=== PATIENT | female | born 1945 | race Caucasian/White ===

== ENCOUNTER 2020-05-08 09:56 | Outpatient (CLI) | payer OTHER, SELFPAY ==
--- NOTE | ~2020-05-08 | MM_ITS ---
EXAMINATION: MM screening [facility] BI w toi HISTORY: Screening mammogram, family history of breast cancer in her sister. TECHNIQUE: Craniocaudal and mediolateral oblique 3-D tomosynthesis images were obtained and synthetic 2-D images were generated. CAD analysis was submitted and interpreted. COMPARISON: 04/12/2019, 04/10/2018, 03/25/2017 BREAST PARENCHYMAL COMPOSITION: There are scattered areas of fibroglandular density. FINDINGS: An intramammary lymph node is again noted in the upper outer quadrant of the right breast. There is no evidence of suspicious mass, calcification, or architectural distortion to suggest malign clinton in either breast. There has been no suspicious interval change. IMPRESSION: 1. No mammographic evidence of malignancy. 2. Recommend routine screening mammography in one year. BI-RADS Category 2: Benign finding(s). Reviewed, dictated and finalized at location A. WADDY
--- NOTE | ~2020-05-08 | DEXA_ITS ---
Bone Density Report Name: Kavita Velasquez Age: 74 Sex: Female Ethnicity: White Date of : 1945 Indication: osteopenia; height loss; prior fracture; Referring Provider: Miguel Hobbs Study: Bone densitometry was performed. Exam Date: May 08, 2020 Accession number: [id number] Bone Density: Region BMD T-score Z-score Classification AP Spine (L3, L4) 0.885 -2.0 0.4 Osteopenia Femoral Neck (Left) 0.661 -1.7 0.3 Osteopenia Total Hip (Left) 0.861 -0.7 1.0 Normal Total Hip Bilateral Avg 0.868 -0.7 1.1 Normal Femoral Neck (Right) 0.733 -1.0 0.9 Normal Total Hip (Right) 0.873 -0.6 1.1 Normal World Health Organization criteria for BMD impression classify patients as: Normal (T-score at or above -1.0), Osteopenia (T-score between -1.0 and -2.5), or Osteoporosis (T-score at or below -2.5). 10-year Fracture Risk(1): Major Osteoporotic Fracture 17% Hip Fracture 2.8% Reported Risk Factors: [place] (), Neck BMD=0.661, BMI=30.2, previous fracture (1) FRAX(R) Version 3.08. Fracture probability calculated for an untreated patient. Fracture probability may be lower if the patient has received treatment. Previous Exams: Region Exam Age BMD T-score BMD Change BMD Change Date g/cm2 vs Baseline vs Previous AP Spine(L3, L4) 05/08/2020 74 0.885 -2.0 -0.060(-6.4%)# 0.027(3.2%)* 04/10/2018 72 0.857 -2.2 -0.087(-9.3%)# -0.008(-0.9%) 03/22/2016 70 0.865 -2.1 -0.080(-8.4%)# 0.007(0.8%) 03/13/2014 68 0.858 -2.2 -0.087(-9.2%)# -0.096(-10.0%) 02/23/2010 64 0.954 -1.3 0.009(0.9%) 0.016(1.7%) 02/19/2008 62 0.937 -1.5 -0.007(-0.8%) 0.016(1.8%) 12/14/2004 59 0.921 -1.6 -0.024(-2.5%)* -0.024(-2.5%)* 09/29/2002 57 0.945 -1.4 Total Hip(Left) 05/08/2020 74 0.861 -0.7 -0.041(-4.5%)# -0.044(-4.9%)* 04/10/2018 72 0.905 -0.3 0.004(0.4%)# 0.003(0.4%) 03/22/2016 70 0.902 -0.3 0.000(0.0%)# -0.008(-0.9%) 03/13/2014 68 0.910 -0.3 0.008(0.9%)# 0.033(3.8%)# 02/23/2010 64 0.876 -0.5 -0.025(-2.8%) 0.007(0.8%) 02/19/2008 62 0.870 -0.6 -0.032(-3.5%)* -0.009(-1.0%) 12/14/2004 59 0.879 -0.5 -0.023(-2.5%) -0.023(-2.5%) 09/29/2002 57 0.901 -0.3 Total Hip(Right) 05/08/2020 74 0.873 -0.6 -0.061(-6.6%)# -0.024(-2.7%) 04/10/2018 72 0.897 -0.4 -0.037(-4.0%)# -0.009(-1.0%) 03/22/2016 70 0.906 -0.3 -0.028(-3.0%)# -0.007(-0.8%) 03/13/2014 68 0.913 -0.2 -0.021(-2.2%)# 0.010(1.2%)# 02/23/2010 64 0.903 -0.3 -0.031(-3.4%)* -0.021(-2.3%) 02/19/2008 62 0.924 -0.1 -0.010(-1.1%) 0.003(0.3%) 12/14/2004 59 0.9
== END 2020-05-08 09:57 | disposition home or self-care (01) ==
LOC: ANHIMG 09:59
PROVIDERS: PCP Physician Assistant; Visit Provider Physician Assistant
DX: Z12.31 Encounter for screening mammogram for malignant neoplasm of breast (principal); Z13.820 Encounter for screening for osteoporosis; M85.852 Other specified disorders of bone density and structure, left thigh
CPT/HCPCS: 77063; 77067; 77080

== ENCOUNTER → 2020-06-14 09:33 | Outpatient (CLI) | payer OTHER, SELFPAY ==
--- NOTE | ~2020-06-14 | MR_ITS ---
EXAMINATION: MR lumbar spine wo con EXAM DATE: 06/14/2020 10:51 INDICATION: M25.551 - Pain in right hip right hip pain x2mos, pt denies lbp, no trauma, no ca. TECHNIQUE: Multi-sequential, multiplanar MR images of the lumbar spine were obtained without contrast . Sagittal T1, T2, T2 fat saturation images. Axial T2 weighted images. There is no prior study for comparison. FINDINGS: There is 4 mm retrolisthesis L5 on S1 with moderate disc disease. Mild loss of the L3-4 dis c height. Mild to moderate loss of the T11-L1 disc heights. The vertebral body and disc heights are o therwise well maintained. The vertebral bodies are otherwise aligned. The conus medullaris terminates at the L1/2 level and has normal signal intensity and morphology. There are no suspicious marrow sig nal abnormalities. Paraspinal soft tissue is unremarkable. Mild to moderate lumbar dextroscoliosis. Level by level evaluation: T12-L1: There is a mild diffuse disc bulge. Facet arthropathy: Mild to moderate left. Neural foraminal stenosis: No stenosis. Central canal stenosis: No stenosis. L1-L2: Disc does not extend beyond the endplate margin. Facet arthropathy: Mild. Neural foraminal stenosis: No stenosis. Central canal stenosis: No stenosis. L2-L3: Disc does not extend beyond the endplate margin. Facet arthropathy: Mild. Neural foraminal stenosis: No stenosis. Central canal stenosis: No stenosis. L3-L4: There is a mild to moderate diffuse disc bulge. Facet arthropathy: Mild to moderate. Neural foraminal stenosis: Mild to moderate bilateral. Central canal stenosis: Mild. L4-L5: There is a mild to moderate diffuse disc bulge. Facet arthropathy: Moderate to severe left, moderate right. Neural foraminal stenosis: Mild to moderate bilateral. Central canal stenosis: Mild to moderate. L5-S1: There is a moderate diffuse disc bulge. Facet arthropathy: Mild to moderate. Neural foraminal stenosis: Moderate right, mild to moderate left. Central canal stenosis: Mild. IMPRESSION: 1. L5-S1 moderate disc disease, left neural foraminal stenosis and grade 1 retrolisthesis. 2. L4-5 moderate to severe facet arthropathy. 3. Less spondylosis other levels. Reviewed, dictated and finalized at location A. TREATMENT OFFSIDER IMPRESSION: 1. L5-S1 moderate disc disease, left neural foraminal stenosis and grade 1 ret rolisthesis. 2. L4-5 moderate to severe facet arthropathy. 3. Less spondylosis other levels.
== END ==
PROVIDERS: PCP Physician Assistant; Visit Provider Nurse Practitioner Family
DX: M25.551 Pain in right hip (principal); M51.87 Other intervertebral disc disorders, lumbosacral region; M43.17 Spondylolisthesis, lumbosacral region; M47.817 Spondylosis without myelopathy or radiculopathy, lumbosacral region
CPT/HCPCS: 72148

== ENCOUNTER 2021-04-30 01:03 | Day surgery (SDC) | payer OTHER, SELFPAY ==
[2021-04-20 13:28] VITALS: BMI 30.2
[2021-04-30 10:15] VITALS: BP 142/86; PULSE 77; RESP 20; TEMP 36.9; O2SAT 95; BMI 29.5
[2021-04-30] MEDS: LACTATED RINGERS 1,000 ML 150 ML IV CONT (10:27)
--- NOTE | 2021-04-30 10:29 | WPDGICN ---
Assessment and Plan Assessment and plan (1) History of colon polyps: Code(s): Z86.010 - Personal history of colonic polyps Status: Acute Assessment and Plan: Patient has a history of colon polyps. Most recent polypectomy in 2014. Plan is for surveillance colonoscopy now and further recommendations will be given after endoscopy. GI Consult Note Consult date/time: 04/30/21 10:29 HPI: Kavita Velasquez is a 75 year old female Presents for screening colonoscopy. Patient's has a prior history of colon polyps removed by colonoscopy 2014. Her current weight appetite bowel movements are normal. She denies abdominal pain. She has had no bleeding. She did have an interval with difficulties with bowel habits. Constipation improved dramatically on taking [id number] medicine MiraLax. She currently has no difficulties. Review of Systems Review of Systems: All systems reviewed & are unremarkable except as noted in HPI and below PMFSH Past Medical History Medical History Constipation Hearing loss Hyperlipidemia Hypertension Hypothyroidism determined by thyroid function test Low back pain Lumbar radiculopathy, right Lumbar spine pain Rotator cuff arthropathy of right shoulder Trochanteric bursitis, right hip Surgical History Surgical History History of cholecystectomy Family History Family History Sibling Family history of cardiovascular disease Family history of pancreatic cancer Family history of malignant neoplasm of breast in first degree relative Family history of malignant neoplasm of thyroid Family history of malignant neoplasm of kidney Mother Family history of kidney disease Other Family history of arthritis Family history of malignant neoplasm Hypertension Social History Social History Smoking status: Never smoker Second hand tobacco smoke exposure: No Alcohol intake: never Substance use: never Substance use type: does not use Living arrangements: alone Gender identity (if verbalized by the patient): Female Spiritual care concerns: No Meds Home Medications and Allergies Home Medications Medication Instructions Recorded Confirmed Type calcium carbonate 260 mg calcium 260 mg PO BID 05/01/19 04/20/21 History (650 mg) chewable tablet latanoprost 0.005 % eye drops 1 drop RIGHTEYE QPM 05/01/19 04/20/21 History multivitamin-ferrous 1 tablet PO DAILY 05/01/19 04/20/21 History fumarate-folic acid 18 mg-400 mcg tablet omega-3 fatty acids-fish oil 360 1 cap PO DAILY 05/01/19 04/20/21 History mg-1,200 mg capsule hydrochlorothiazide 12.5 mg capsule 12.5 mg PO DAILY #90 cap 03/31/21 04/20/21 Rx wheat dextrin (with aspartame) 3 3 ea PO DAILY 04/06/21 04/20/21 History gram/4.6 gram oral powder polyethylene glycol 3350 [Miralax] 17 g PO DAILY PRN 04/20/21 04/20/21 History atorvastatin 10 mg tablet 10 mg PO DAILY #90 tablet 04/24/21 04/30/21 Rx levothyroxine 25 mcg tablet 25 mcg PO DAILY #90 tablet 04/24/21 04/30/21 Rx lisinopril 10 mg tablet 10 mg PO DAILY #90 tablet 04/24/21 04/30/21 Rx Allergies Allergy/AdvReac Type Severity Reaction Status Date / Time No Known Allergies Allergy Verified 04/30/21 10:13 Vital Signs Vital Signs - 24 hr 04/30/21 10:15 Temperature 98.4 F Pulse Rate 77 Respiratory Rate 20 Blood Pressure 142/86 H Pulse Oximetry 95 Exam Narrative: Physical exam reveals patient to be alert. Vital signs stable. HEENT exam is unremarkable. Patient is anicteric. Lungs are clear to auscultation and to percussion. Heart is without murmur or extra sounds. Abdomen bowel sounds are present soft nontender with no organomegaly. Digital external rectal exam is normal.
--- NOTE | 2021-04-30 10:31 | WPDANESEPPF ---
Anes - Initial Pre Proc Eval Procedure: Operation Date: 04/30/21 11:30 Proposed Procedures p Colonoscopy - Raj Baer MD Date/Time: 04/30/21 10:31 Surgeon: Raj Baer MD Pre Op Diagnosis: constipation, hx of colon polyps, abdominal pain Patient Data Age: 75 Gender: F Height: 1.57 m Weight: 73.3 kg Last Vital Signs Temp 36.9 C 04/30/21 10:15 Pulse 77 04/30/21 10:15 Resp 20 04/30/21 10:15 BP 142/86 H 04/30/21 10:15 Pulse Ox 95 04/30/21 10:15 Allergies Allergy/AdvReac Type Severity Reaction Status Date / Time No Known Allergies Allergy Verified 04/30/21 10:13 Home Medications Medication Instructions Recorded Confirmed Type calcium carbonate 260 mg calcium 260 mg PO BID 05/01/19 04/20/21 History (650 mg) chewable tablet latanoprost 0.005 % eye drops 1 drop RIGHTEYE QPM 05/01/19 04/20/21 History multivitamin-ferrous 1 tablet PO DAILY 05/01/19 04/20/21 History fumarate-folic acid 18 mg-400 mcg tablet omega-3 fatty acids-fish oil 360 1 cap PO DAILY 05/01/19 04/20/21 History mg-1,200 mg capsule hydrochlorothiazide 12.5 mg capsule 12.5 mg PO DAILY #90 cap 03/31/21 04/20/21 Rx wheat dextrin (with aspartame) 3 3 ea PO DAILY 04/06/21 04/20/21 History gram/4.6 gram oral powder polyethylene glycol 3350 [Miralax] 17 g PO DAILY PRN 04/20/21 04/20/21 History atorvastatin 10 mg tablet 10 mg PO DAILY #90 tablet 04/24/21 04/30/21 Rx levothyroxine 25 mcg tablet 25 mcg PO DAILY #90 tablet 04/24/21 04/30/21 Rx lisinopril 10 mg tablet 10 mg PO DAILY #90 tablet 04/24/21 04/30/21 Rx Patient hx anesthesia problems: none Family hx anesthesia problems: none Results Review: All pre-operative results and documents have been reviewed as part of the pre-operative evaluation. [facility] Past Medical History Medical History Constipation Hearing loss Hyperlipidemia Hypertension Hypothyroidism determined by thyroid function test Low back pain Lumbar radiculopathy, right Lumbar spine pain Rotator cuff arthropathy of right shoulder Trochanteric bursitis, right hip Surgical History Surgical History History of cholecystectomy Family History Family History Sibling Family history of cardiovascular disease Family history of pancreatic cancer Family history of malignant neoplasm of breast in first degree relative Family history of malignant neoplasm of thyroid Family history of malignant neoplasm of kidney Mother Family history of kidney disease Other Family history of arthritis Family history of malignant neoplasm Hypertension Social History Social History Smoking status: Never smoker Second hand tobacco smoke exposure: No Alcohol intake: never Substance use: never Substance use type: does not use Living arrangements: alone Gender identity (if verbalized by the patient): Female Spiritual care concerns: No Anes - Eval Final PreProcedure Day of Procedure 04/30/21 10:31 Patient weight: overweight Heart: regular rate and rhythm Lungs: clear to auscultation Airway: Mallampati scale class III Neurological: alert and oriented Last oral intake: >/= 8 hours ASA classification: III Emergent: no Anesthetic plan: proceed Anesthesia type and monitoring: general GIVS and standard monitoring Results Review: All pre-operative results and documents have been reviewed as part of the pre-operative evaluation. Informed Consent: The patient's anesthetic plan and its attendant risks and benefits were discussed with the patient/family/POA. Questions were solicited and answers provided to the satisfaction of the patient/family/POA.
[2021-04-30] MEDS: SIMETHICONE ORAL SUSPENSION 20 MG/0.3 ML 30 ML BOTTLE 0.6 ML IRRIGATION (11:16)
[2021-04-30 11:25] VITALS: BP 108/71; PULSE 60; RESP 13; O2SAT 97
[2021-04-30 11:35] VITALS: BP 136/92; PULSE 74; RESP 22; O2SAT 97
[2021-04-30 11:45] VITALS: BP 144/87; PULSE 71; RESP 19; O2SAT 98
== END 2021-04-30 11:54 | disposition home or self-care (01) ==
PROVIDERS: PCP Family Medicine; Visit Provider Internal Medicine Gastroenterology
PROC: 0DJD8ZZ Inspection of Lower Intestinal Tract, Via Natural or Artificial Opening Endoscopic (ICD-10-PCS; CPT 45378; principal; 2021-04-30 11:30)
DX: Z12.11 Encounter for screening for malignant neoplasm of colon (principal); D12.3 Benign neoplasm of transverse colon; K57.30 Diverticulosis of large intestine without perforation or abscess without bleeding; I10 Essential (primary) hypertension; E78.5 Hyperlipidemia, unspecified; E03.9 Hypothyroidism, unspecified; M54.16 Radiculopathy, lumbar region; Z90.49 Acquired absence of other specified parts of digestive tract
CPT/HCPCS: 45380; 88305; J2704; J7120

== ENCOUNTER 2021-05-20 08:29 | Outpatient (CLI) | payer OTHER, SELFPAY ==
--- NOTE | ~2021-05-20 | MM_ITS ---
EXAMINATION: MM screening [facility] BI w toi HISTORY: Screening TECHNIQUE: Craniocaudal and mediolateral oblique 3-D tomosynthesis images were obtained and synthetic 2-D images were generated. CAD analysis was submitted and interpreted. COMPARISON: Comparison to multiple prior studies sequentially, with oldest reviewed study dated 02/22. BREAST PARENCHYMAL COMPOSITION: There are scattered areas of fibroglandular density. FINDINGS: There is no evidence of suspicious mass, calcification, or architectural distortion to sugg est malignancy in either breast. There has been no suspicious interval change. IMPRESSION: 1. No mammographic evidence of malignancy. 2. Recommend routine screening mammography in one year. BI-RADS Category 1: Negative Reviewed, dictated and finalized at location A. LEUM LAYER APPRENTICE
== END 2021-05-20 08:30 | disposition home or self-care (01) ==
LOC: ANHIMG 08:31
PROVIDERS: PCP Family Medicine; Visit Provider Physician Assistant
DX: Z12.31 Encounter for screening mammogram for malignant neoplasm of breast (principal)
CPT/HCPCS: 77063; 77067

== ENCOUNTER 2022-07-22 14:33 | Outpatient (CLI) | payer OTHER, SELFPAY ==
--- NOTE | ~2022-07-22 | MM_ITS ---
EXAMINATION: MM screening [facility] BI w toi HISTORY: Screening mammogram TECHNIQUE: Craniocaudal and mediolateral oblique 3-D tomosynthesis images were obtained and synthetic 2-D images were generated. CAD analysis was submitted and interpreted. COMPARISON: 05/20/2021, 05/08/2020, 04/12/2019 bilateral screening mammogram examinations BREAST PARENCHYMAL COMPOSITION: There are scattered areas of fibroglandular density. FINDINGS: There is no evidence of suspicious mass, calcification, or architectural distortion to sugg est malignancy in either breast. There has been no suspicious interval change. IMPRESSION: 1. No mammographic evidence of malignancy. 2. Recommend routine screening mammography in one year. BI-RADS Category 1: Negative.. Reviewed, dictated and finalized at location A. TIVE DEVELOPER
== END 2022-07-22 14:34 | disposition home or self-care (01) ==
LOC: ANHIMG 14:35
PROVIDERS: PCP Family Medicine; Visit Provider Physician Assistant
DX: Z12.31 Encounter for screening mammogram for malignant neoplasm of breast (principal)
CPT/HCPCS: 77063; 77067

== ENCOUNTER 2022-08-06 10:04 | Emergency (ER) | payer OTHER, SELFPAY ==
--- NOTE | ~2022-08-06 | XR_ITS ---
EXAMINATION: XR abdomen/kub 1V DATE: 08/06/2022 10:32 INDICATION: Right lower abdominal pain. TECHNIQUE: A supine view of the abdomen on 2 radiographs was obtained. COMPARISON: CT abdomen 02/14/2017 FINDINGS: There are no dilated loops of bowel. There is a moderate volume of stool in the colon. Surg ical clips in the right upper quadrant are likely from cholecystectomy. There are phleboliths in the pelvis. IMPRESSION: 1. Normal bowel gas pattern. Reviewed, dictated and finalized at location A.
[2022-08-06 10:10] VITALS: BP 138/72; PULSE 89; RESP 16; TEMP 36.8; O2SAT 96
--- NOTE | 2022-08-06 10:11 | ED.BACK ---
HPI - Back Pain/Injury General Chief Complaint: Back Pain/Injury Stated Complaint: R BACK PAIN Time Seen by Provider: 08/06/22 10:12 Source: patient Mode of arrival: ambulatory Limitations: no limitations History of Present Illness HPI Narrative: Kavita is a 76-year-old female patient presenting to the clinic today with complaints of right-side pain. She reports pain started at 5:00 a.m. this morning. She denies any known injury. States last bowel movement was yesterday. Does not feel so she is constipated. She denies any nausea, vomiting, or diarrhea. No vaginal discharge. She denies any urinary symptoms. No fever or chills. Pain is sharp and aching and worse with movement. History of constipation and cholecystectomy. No history of appendectomy, pancreatitis, or kidney stones. Related Data Home Medications Medication Instructions Recorded Confirmed latanoprost 0.005 % eye drops 1 drop RIGHT EYE QPM 05/01/19 06/02/22 multivitamin-ferrous 1 tablet PO DAILY 05/01/19 06/02/22 fumarate-folic acid 18 mg-400 mcg tablet (Centrum Complete) omega-3 fatty acids-fish oil 360 1 cap PO DAILY 05/01/19 06/02/22 mg-1,200 mg capsule (Fish Oil) wheat dextrin (with aspartame) 3 3 ea PO DAILY 04/06/21 06/02/22 gram/4.6 gram oral powder polyethylene glycol 3350 17 17 g PO DAILY PRN Constipation 04/20/21 06/02/22 gram/dose oral powder (Miralax) calcium 650 mg-vitamin D3 12.5 tablet PO 05/11/22 06/02/22 mcg-vitamin K 40 mcg chewable tablet (Viactiv) cholecalciferol (vitamin D3) 10 10 mcg PO DAILY 05/11/22 06/02/22 mcg (400 unit) capsule Allergies Allergy/AdvReac Type Severity Reaction Status Date / Time No Known Allergies Allergy Verified 08/06/22 10:11 Review of Systems Review of Systems: Pertinent positives per HPI. Patient denies any fever, chills, rash, headache, visual changes, dizziness, cough, runny nose, sore throat, shortness of breath, chest pain, palpitations, nausea, vomiting, diarrhea, constipation, abdominal pain, or any urinary issues. [facility] Past Medical History Medical History Arthritis of left shoulder region Benign hypertension Biceps tendinitis of right upper extremity Closed displaced fracture of lateral malleolus of right fibula Cold intolerance Complete tear of right rotator cuff Constipation Degenerative arthritis of right shoulder region Epigastric pain Hearing loss Hyperlipidemia Hyperlipidemia LDL goal <100 Hypertension Hypothyroidism determined by thyroid function test Hypothyroidism determined by thyroid function test Impingement syndrome, shoulder, left Low back pain Lumbar radiculopathy, right Lumbar spine pain Nontraumatic rupture of right proximal biceps tendon Pain of right shoulder region Postmenopausal Primary osteoarthritis of right shoulder Right ankle pain Rotator cuff arthropathy of right shoulder Screening for malignant neoplasm of breast Subacromial impingement of right shoulder Tendinitis of right rotator cuff Trochanteric bursitis, right hip Surgical History Surgical History History of cholecystectomy Family History Family History Sibling Family history of cardiovascular disease Family history of pancreatic cancer Family history of malignant neoplasm of breast in first degree relative Family history of malignant neoplasm of thyroid Family history of malignant neoplasm of kidney Mother Family history of kidney disease Other Family history of arthritis Family history of malignant neoplasm Hypertension Social History Social History Smoking status: Never smoker Second hand tobacco smoke exposure: No Alcohol intake: never Substance use: never Substance use type: does not use Lack of Transpor
[2022-08-06 10:13] VITALS: BP 138/72; PULSE 89; RESP 16; TEMP 36.8; O2SAT 96
== END 2022-08-06 11:13 | disposition home or self-care (01) ==
PROVIDERS: Emergency Provider Nurse Practitioner Family; PCP Physician Assistant
DX: R10.9 Unspecified abdominal pain (principal); I10 Essential (primary) hypertension; E78.5 Hyperlipidemia, unspecified; E03.9 Hypothyroidism, unspecified
CPT/HCPCS: 74018; 81003; 87086; 99213; G0463

== ENCOUNTER 2023-09-06 09:36 | Outpatient (CLI) | payer OTHER, SELFPAY ==
--- NOTE | ~2023-09-06 | XR_ITS ---
AP and lateral views of the right hip Clinical history: Osteoarthritis Findings: No acute fracture or dislocation is seen. Osseous alignment is anatomic. The right hip join t space is preserved. Soft tissues are unremarkable. Impression: No significant abnormality is seen. Reviewed, dictated and finalized at location . Impression: No significant abnormality is seen.
--- NOTE | ~2023-09-06 | XR_ITS ---
Right Shoulder Technique: AP and axillary views were obtained. Clinical History: Osteoarthritis Findings: No fracture or dislocation is seen. Osseous alignment is anatomic. There is mild glenohumer al joint degenerative change with small inferomedial humeral head osteophytes. AC joint intact. Soft tissues are unremarkable. Impression: Mild glenohumeral joint degenerative change. Reviewed, dictated and finalized at location . Impression: Mild glenohumeral joint degenerative change.
== END 2023-09-06 09:37 ==
PROVIDERS: PCP Physician Assistant; Visit Provider Physician Assistant
DX: M19.011 Primary osteoarthritis, right shoulder (principal)
CPT/HCPCS: 73030; 73502

== ENCOUNTER 2023-09-14 09:56 | Outpatient (CLI) | payer OTHER, SELFPAY ==
--- NOTE | ~2023-09-14 | DEXA_ITS ---
Bone Density Report Name: ZEENAT HARRIS Age: 78 Sex: Female Ethnicity: White Date of : 1945 Indication: postmenopausal; screening for osteoporosis; height loss; Referring Provider: ELLA CARDENAS Study: Bone densitometry was performed. Exam Date: September 14, 2023 Accession number: [id number] Bone Density: Region BMD T-score Z-score Classification AP Spine(L1-L4) 0.921 -1.1 1.3 Osteopenia Femoral Neck (Left) 0.664 -1.7 0.5 Osteopenia Total Hip (Left) 0.892 -0.4 1.4 Normal Femoral Neck (Right) 0.717 -1.2 0.9 Osteopenia Total Hip (Right) 0.879 -0.5 1.3 Normal Total Hip Mean 0.885 -0.5 1.4 Normal World Health Organization criteria for BMD impression classify patients as: Normal (T-score at or above -1.0), Osteopenia (T-score between -1.0 and -2.5), or Osteoporosis (T-score at or below -2.5). 10-year Fracture Risk(1): Major Osteoporotic Fracture 11% Hip Fracture 2.4% Reported Risk Factors: [place] (), Neck BMD=0.664, BMI=32.7 (1) FRAX(R) Version 3.08. Fracture probability calculated for an untreated patient. Fracture probability may be lower if the patient has received treatment. Clinical Information Provided by Patient: Has used the following medications: Vitamin D, Calcium Patient maximum height was 62 Menopause Age: 52 Does not regularly consume dairy products Drinks caffeinated beverages Onset of menses at age 14 Number of children 0 Impression: The patient has low bone mass, based on the Left Femoral Neck T-score. The patient has an estimated ten-year risk of hip fracture of 2.4% and an estimated ten-year risk of major fracture of 11%, based on the WHO FRAX algorithm. Discussion: BONE DENSITY IS LOW AT ONE OR MORE SKELETAL SITES. This patient's lowest T-score is low at one or more skeletal sites. It meets the World Health Organization's (WHO) criteria for ?low bone mass? (T-score between -1.0 and -2.5). The patient's 10-year risk of fracture as calculated by FRAX is less than the threshold where pharmacological therapy is recommended by the National Osteoporosis Foundation (NOF). However, all treatment decisions require clinical judgment and consideration of individual patient factors, including patient preferences, comorbidities, previous drug use, risk factors not captured in the FRAX model (e.g., frailty, falls, vitamin D deficiency, increased bone turnover, interval significant decline in bone density) and possible under or overestimation of fracture risk by FRAX. The patient should follow a healthful lifestyle (good nutrition with adequate calcium and vitamin D, and appropriate weight-bearing exercise). Follow-Up: Consider repeating this study in 2 to 3 years to reassess this patient's status, or sooner if there is some new clinical indication.
== END 2023-09-14 09:57 | disposition home or self-care (01) ==
LOC: ANHIMG 09:57
PROVIDERS: PCP Family Medicine; Visit Provider Physician Assistant
DX: M85.89 Other specified disorders of bone density and structure, multiple sites (principal); Z78.0 Asymptomatic menopausal state
CPT/HCPCS: 77080

== ENCOUNTER 2023-09-27 14:02 | Outpatient (CLI) | payer OTHER, SELFPAY ==
--- NOTE | ~2023-09-27 | MM_ITS ---
EXAMINATION: MM screening [facility] BI w toi HISTORY: Screening mammogram TECHNIQUE: Craniocaudal and mediolateral oblique 3-D tomosynthesis images were obtained and synthetic 2-D images were generated. CAD analysis was submitted and interpreted. COMPARISON: 07/22/2022, 05/20/2021 bilateral screening mammogram examinations BREAST PARENCHYMAL COMPOSITION: There are scattered areas of fibroglandular density. FINDINGS: There is no evidence of suspicious mass, calcification, or architectural distortion to sugg est malignancy in either breast. There has been no suspicious interval change. IMPRESSION: 1. No mammographic evidence of malignancy. 2. Recommend routine screening mammography in one year. BI-RADS Category 1: Negative Reviewed, dictated and finalized at location B.
== END 2023-09-27 14:03 | disposition home or self-care (01) ==
PROVIDERS: PCP Physician Assistant; Visit Provider Physician Assistant
DX: Z12.31 Encounter for screening mammogram for malignant neoplasm of breast (principal)
CPT/HCPCS: 77063; 77067

== ENCOUNTER 2024-01-03 12:45 | Outpatient (CLI) | payer OTHER, SELFPAY ==
--- NOTE | ~2024-01-03 | CT_ITS ---
CT abdomen w con Ordering provider: Jenny Ma PA-C History: 78 years Female with . R10.9 - Unspecified abdominal pain . Comparison: None. Technique: CT abdomen and pelvis with IV and without oral contrast. Automated exposure control and it erative reconstruction technique were employed. The dose-length product was 500.08 mGy-cm. 100 mL Omn ipaque 350 was given IV. Findings: VISUALIZED LOWER CHEST: Dependent atelectatic changes. UPPER ABDOMINAL ORGANS: Liver: Slight dilatation of the intrahepatic ducts. Slightly dilated pancreatic duct measuring 1.5 cm .. Gallbladder: Normal status post cholecystectomy. Spleen: Normal. Stomach/duodenum: Sliding hiatus hernia. Pancreas: Normal. Adrenals: Normal. Kidneys: Left kidney upper pole cyst measuring 3.1 cm. Left hydronephrotic changes. Stone in the righ t kidney lower pole measuring 4 mm. Right hydronephrotic changes are also seen. BOWEL AND MESENTERY: Colon: No evidence of diverticulitis. Normal appendix. Small Bowel: Normal. No obstruction. Peritoneum/mesentery: No free air or free fluid. No mesenteric lymphadenopathy. RETROPERITONEUM: Mild atheromatous disease of the abdominal aorta. No retroperitoneal lymphadenopat hy. MUSCULOSKELETAL: Superficial soft tissues: Small fat-containing umbilical hernia. Otherwise, The superficial soft tiss ues are normal. Bones: Age appropriate degenerative changes of the spine. IMPRESSION: 1. Stone in the right kidney lower pole. Bilateral hydronephrotic changes. Left kidney cyst. 2. Sliding hiatus hernia. 3. Slight dilatation of the intrahepatic ducts and the CBD. Reviewed, dictated and finalized at location A. IMPRESSION: 1. Stone in the right kidney lower pole. Bilateral hydronephrotic changes. Lef t kidney cyst. 2. Sliding hiatus hernia. 3. Slight dilatation of the intrahepatic ducts and the CBD.
[2024-01-03 13:31] LABS: Estimated Glomerular Filt Rate > 60
[2024-01-03 14:11] LABS: Basophils Percent Auto 0.3 % (0.2-1.2); Eosinophils Absolute Auto 0.1 K/mm3 (0-0.3); Eosinophils Percent Auto 0.8 % (0-4.4); Hematocrit 38.6 % (37.0-47.0); Hemoglobin 13.1 g/dL (12.0-15.0); Immature Granulocyte Absolute 0.02 K/mm3 (0.00-0.031); Immature Granulocyte Percent A 0.3 % (0-0.5); Lymphocytes Percent Auto 27.4 % (18.3-44.2); Mean Corpuscular HGB Conc 33.9 g/dl (32-36); Mean Corpuscular Hemoglobin 31.5 pg (26-34); Mean Corpuscular Volume 92.8 fl (80-100); Mean Platelet Volume 9.2 fl (7.4-10.4); Monocytes Absolute Auto 0.6 K/mm3 (0.1-0.6); Monocytes Percent Auto 9.6 % (2.6-8.5); Neutrophils Absolute Auto 4.1 K/mm3 (1.3-6.7); Neutrophils Percent Auto 61.6 % (45.5-73.1); Platelet Count Result 243 k/mm3 (150-375); Red Blood Count 4.16 M/mm3 (4.2-5.4); Red Cell Distribution Width 12.5 % (11.5-14.5); White Blood Count 6.6 K/mm3 (4.5-10.0)
[2024-01-03 14:27] LABS: Alanine Aminotransferase 18 U/L (6-35); Albumin Level 4.1 g/dL (3.5-5.1); Alkaline Phosphatase 82 U/L (38-126); Anion Gap 11 mmol/L (4-12); Aspartate Amino Transferase 24 U/L (14-36); Bilirubin,Total 0.5 mg/dL (0.2-1.3); Blood Urea Nitrogen 14 mg/dL (7-17); Calcium 8.9 mg/dL (8.4-10.2); Carbon Dioxide 29 mmol/L (22-30); Chloride 93 mmol/L (98-107); Estimated Glomerular Filt Rate > 60; Glucose 109 mg/dL (65-110); Lipase 64 U/L (23-300); Potassium 3.6 mmol/L (3.4-5.0); Sodium 133 mmol/L (137-145)
== END 2024-01-03 12:46 | disposition home or self-care (01) ==
PROVIDERS: PCP Family Medicine; Visit Provider Student in an Organized Health Care Education/Training Program
DX: R19.8 Other specified symptoms and signs involving the digestive system and abdomen (principal); N20.0 Calculus of kidney; K44.9 Diaphragmatic hernia without obstruction or gangrene
CPT/HCPCS: 36415; 74160; 80053; 83690; 85025; Q9967

== ENCOUNTER 2024-01-29 07:18 | Observation (INO) | payer OTHER, SELFPAY ==
[2024-01-29] VITALS (19 sets, daily range): BP systolic 114–158; BP diastolic 59–78; PULSE 74–87; RESP 16–20; TEMP 36.1–37; O2SAT 90–98; BMI 34.2
--- NOTE | ~2024-01-29 | CT_ITS ---
Non-contrast CT scan of the Abdomen and Pelvis Clinical indication: Flank pain Technique: 2.5 mm axial scans were obtained through the abdomen and pelvis without intravenous or or al contrast. Dose reduction technique was used on this scan by utilizing automated exposure control a nd iterative reconstruction technique. The dose-length product (DLP) was 691.16 mGy-cm. COMPARISON: 01/03/2024 Findings: Images through the lung bases reveal no abnormalities. 6 mm nonobstructing right renal stone present. No ureteral stone or hydronephrosis. The liver, spleen, pancreas, and adrenals appear normal. Cholecystectomy clips are present. There are atherosclerotic calcifications of the aorta. . There is no evidence of bowel obstruction. Images through the pelvis were performed. There is no evidence of ascites or lymphadenopathy. Urinary bladder unremarkable. No pelvic mass seen. Impression: 6 mm nonobstructing right renal stone. No ureteral stone or definite hydronephrosis. Probable extrare nal pelves. Reviewed, dictated and finalized at [facility]. Impression: 6 mm nonobstructing right renal stone. No ureteral stone or definite hydronephr osis. Probable extrarenal pelves.
[2024-01-29 07:48] LABS: Basophils Percent Auto 0.4 % (0.2-1.2); Eosinophils Absolute Auto 0.2 K/mm3 (0-0.3); Hematocrit 41.3 % (37.0-47.0); Hemoglobin 14.1 g/dL (12.0-15.0); Immature Granulocyte Absolute 0.02 K/mm3 (0.00-0.031); Immature Granulocyte Percent A 0.2 % (0-0.5); Lymphocytes Absolute Auto 2.35 K/mm3 (0.9-3.2); Lymphocytes Percent Auto 21.8 % (18.3-44.2); Mean Corpuscular HGB Conc 34.1 g/dl (32-36); Mean Corpuscular Hemoglobin 31.5 pg (26-34); Mean Corpuscular Volume 92.4 fl (80-100); Mean Platelet Volume 9.2 fl (7.4-10.4); Monocytes Absolute Auto 1.2 K/mm3 (0.1-0.6); Monocytes Percent Auto 10.8 % (2.6-8.5); Neutrophils Percent Auto 64.8 % (45.5-73.1); Platelet Count Result 251 k/mm3 (150-375); Red Blood Count 4.47 M/mm3 (4.2-5.4); Red Cell Distribution Width 12.7 % (11.5-14.5); White Blood Count 10.8 K/mm3 (4.5-10.0)
[2024-01-29 07:52] LABS: Alanine Aminotransferase 21 U/L (6-35); Albumin Level 4.6 g/dL (3.5-5.1); Alkaline Phosphatase 96 U/L (38-126); Anion Gap 6 mmol/L (4-12); Aspartate Amino Transferase 28 U/L (14-36); Bacteria Urine None Seen /hpf; Bilirubin,Total 0.9 mg/dL (0.2-1.3); Blood Urea Nitrogen 20 mg/dL (7-17); Calcium 9.8 mg/dL (8.4-10.2); Carbon Dioxide 29 mmol/L (22-30); Chloride 98 mmol/L (98-107); Estimated CRCL calculation 55 ml/min; Estimated Glomerular Filt Rate > 60; Glucose 118 mg/dL (65-110); Lipase 112 U/L (23-300); Non Pathogenic Casts 0-2; Potassium 3.6 mmol/L (3.4-5.0); RBC Urine 0-2 /hpf (0-2); Sodium 133 mmol/L (137-145); Squamous Epithelial Cell Urine Few /hpf (Few); WBC Urine 21-50 /hpf (0-3)
[2024-01-29 07:54] LABS: Color Urine Yellow (Yellow)
[2024-01-29 07:55] LABS: Appearance Urine Sl Cloudy (Clear); Blood Urine Trace-intact (Negative); Glucose Urine UA Negative (Negative); Ketones Urine Negative (Negative); Protein Urine Negative (Negative); pH Urine 7.5 (5.0-9.0)
[2024-01-29 07:56] LABS: Add Urine Microscopic? YES; Bilirubin Urine Negative (Negative); Leukocyte Esterase Ur 2+ LEU/UL (Negative); Nitrate Urine Negative (Negative); Urobilinogen Urine 0.2 mg/dL (<2.0)
[2024-01-29] MEDS: MORPHINE SULFATE (*CRX) 4 MG/ML INJ 2 MG IV PUSH (08:07)
[2024-01-29] MEDS: SODIUM CHLORIDE 0.9% IV 1,000 ML 999 ML IV CONT (08:07)
[2024-01-29] MEDS: ONDANSETRON INJ 4 MG/2 ML VIAL IV PUSH ×2 (08:08→09:37)
--- NOTE | 2024-01-29 09:02 | ED.GENADULT ---
HPI - General Adult General Chief complaint: Abdominal Pain Stated complaint: flank pain Time Seen by Provider: 01/29/24 08:01 History of Present Illness HPI narrative: Patient 78-year-old female who presents emergency department chief complaint of right flank pain. Patient reports that she was seen by her primary care provider on the diagnosed with a kidney stone that was nonobstructing the patient reports that she started having severe pain reports that is not improved by anything the patient reports been ongoing for the last 12 hours and reports that she has had no fever denies dysuria. Patient reports she has not had to have a stent before in the past Related Data Home Medications Medication Instructions Recorded Confirmed latanoprost 0.005 % eye drops 1 drop RIGHT EYE QPM 05/01/19 01/03/24 multivitamin-ferrous 1 tablet PO DAILY 05/01/19 01/03/24 fumarate-folic acid 18 mg-400 mcg tablet (Centrum Complete) omega-3 fatty acids-fish oil 360 1 cap PO DAILY 05/01/19 01/03/24 mg-1,200 mg capsule (Fish Oil) wheat dextrin (with aspartame) 3 3 ea PO DAILY 04/06/21 01/03/24 gram/4.6 gram oral powder polyethylene glycol 3350 17 17 g PO DAILY PRN Constipation 04/20/21 01/03/24 gram/dose oral powder (Miralax) calcium 650 mg-vitamin D3 12.5 1 tablet PO DAILY 05/11/22 01/03/24 mcg-vitamin K 40 mcg chewable tablet (Viactiv) cholecalciferol (vitamin D3) 10 10 mcg PO DAILY 05/11/22 01/03/24 mcg (400 unit) capsule loratadine 10 mg chewable tablet 10 mg PO DAILY 08/09/22 01/03/24 (Claritin) Allergies Allergy/AdvReac Type Severity Reaction Status Date / Time No Known Allergies Allergy Verified 01/29/24 08:11 Review of Systems Review of Systems: A 10 system review of systems was completed on the patient and is negative except for what is stated in the HPI. Nursing and ancillary documentation was reviewed. [facility] Past Medical History Medical History Arthritis of left shoulder region Benign hypertension Biceps tendinitis of right upper extremity Closed displaced fracture of lateral malleolus of right fibula Cold intolerance Complete tear of right rotator cuff Constipation Degenerative arthritis of right shoulder region Epigastric pain Hearing loss Hyperlipidemia Hyperlipidemia LDL goal <100 Hypertension Hypothyroidism determined by thyroid function test Hypothyroidism determined by thyroid function test Impingement syndrome, shoulder, left Low back pain Lumbar radiculopathy, right Lumbar spine pain Nontraumatic rupture of right proximal biceps tendon Pain of right shoulder region Postmenopausal Primary osteoarthritis of right shoulder Right ankle pain Rotator cuff arthropathy of right shoulder Screening for malignant neoplasm of breast Subacromial impingement of right shoulder Tendinitis of right rotator cuff Trochanteric bursitis, right hip Surgical History Surgical History History of cholecystectomy Family History Family History Sibling Family history of cardiovascular disease Family history of pancreatic cancer Family history of malignant neoplasm of breast in first degree relative Family history of malignant neoplasm of thyroid Family history of malignant neoplasm of kidney Mother Family history of kidney disease Other Family history of arthritis Family history of malignant neoplasm Hypertension Social History Social History Smoking status: Never smoker Second hand tobacco smoke exposure: No Alcohol intake: never Substance use: never Substance use type: does not use Lack of Transportation: No Lack of Food: Never True Current Housing: I Have Housing Concerned About Future Housing: No Difficulty Paying G
[2024-01-29] MEDS: HYDROmorphone HCL INJ (*CRX) 1 MG/ML SYR IV PUSH (09:31)
--- NOTE | 2024-01-29 11:36 | PM.IMHP ---
H&P: HPI History of Present Illness Date/Time: 01/29/24 11:36 Chief Complaint: abdominal pain/ flank pain Narrative: This is a 78-year-old female with a significant past medical history of hypertension, hyperlipidemia, hypothyroidism, chronic low back pain, cholecystectomy who presented to the hospital for evaluation of right flank pain. Patient provides the following history of presenting illness. She states that she was recently seen by her Urologist Dr. Manzanares and was diagnosed with a non-obstructing kidney stone. She was told then that she shouldn't have any problems with it and to follow up in their office in 1 year. Yesterday around 6 p.m. she started noticing right flank pain that progressively worsened over the course of a few hours. She came to the ER due to the flank pain for further workup. She denies any fever, chills, nausea, vomiting, diarrhea, abdominal pain, chest pain, or shortness of breath. She does report having a headache, sinus pressure, and right flank pain that has been constant. Workup in the hospital included a CT of the abdomen and pelvis which showed a 6 mm nonobstructing right renal stone, no ureteral stone or definitive hydronephrosis. Initial labs showed a white blood cell count of 10.8, sodium 133, lipase 112. UA was obtained which showed trace urine blood, 2+ leukocyte, 21-50 urine wbc's. Urine culture was obtained and is pending. Patient was given 1 L of normal saline, Zofran, morphine, Dilaudid, and Rocephin while in the ED. Review of Systems Review of Systems: All systems reviewed & are unremarkable except as noted in HPI and below Constitutional: Constitutional: Reports as per HPI and Reports no additional constitutional complaints Eyes: Eyes: Reports as per HPI and Reports no additional eye complaints ENT: Reports system reviewed and no additional complaints, except as documented and Reports as per HPI Cardiovascular: Cardiovascular: Reports as per HPI and Reports no additional cardiovascular complaints Respiratory: Respiratory: Reports as per HPI and Reports no additional respiratory complaints Gastrointestinal: Gastrointestinal: Reports as per HPI and Reports no additional gastrointestinal complaints Genitourinary: Genitourinary: Reports no additional female genitourinary complaints and Reports as per HPI Musculoskeletal: Musculoskeletal: Reports no additional musculoskeletal complaints and Reports as per HPI Integumentary/Breasts: Skin/Breast: Reports system reviewed and no additional complaints, except as docu and Reports as per HPI Neurologic: Reports system reviewed and no additional complaints, except as documented and Reports as per HPI Psychiatric: Psychiatric: Reports no additional psychiatric complaints and Reports as per HPI [facility] Past Medical History Medical History Arthritis of left shoulder region Benign hypertension Biceps tendinitis of right upper extremity Closed displaced fracture of lateral malleolus of right fibula Cold intolerance Complete tear of right rotator cuff Constipation Degenerative arthritis of right shoulder region Epigastric pain Hearing loss Hyperlipidemia Hyperlipidemia LDL goal <100 Hypertension Hypothyroidism determined by thyroid function test Hypothyroidism determined by thyroid function test Impingement syndrome, shoulder, left Low back pain Lumbar radiculopathy, right Lumbar spine pain Nontraumatic rupture of right proximal biceps tendon Pain of right shoulder region Postmenopausal Primary osteoarthritis of right shoulder Right ankle pain Rotator cuff arthropathy of right shoulder Screening for malignant neoplasm of breast Subacromial impingement of right shoulder Tendinitis of right rotator cuff Trochanteric bursitis, right hip Surgical History Surgical History History of cholecystectomy Family History Family History (Upd
--- NOTE | 2024-01-29 12:30 | ADMGEN ---
This patient, Kavita Velasquez, was admitted to [facility] Surg Room 331-01. Patient/family oriented to hospital policies and general routines including ID bracelet, bed and alarms, visiting hours, pain management, procedures, bathroom and other care routines, personal items, smoking policy, room service/diet, and visiting hours. Information on how to activate the Rapid Response Team has been discussed. Patient/Family are encouraged to report perceived risks to care and to ask questions if they do not understand what they are told or what they should do. Report from Eren in ER.
[2024-01-29] MEDS: ACETAMINOPHEN 325 MG TABLET 650 MG PO (12:52)
[2024-01-29] MEDS: FLUTICASONE PROPIONATE 0.05% NA SPR 16 GM BTL (*BKC) 1 SPRAY NASAL (15:18)
[2024-01-29] MEDS: LORATADINE 10 MG TABLET PO (15:20)
[2024-01-29] MEDS: HYDROcodone/acetaminophen (*CRX) 5-325 MG TABLET 1 TAB PO (15:24)
[2024-01-29] MEDS: LATANOPROST 0.005% OP SOLN 2.5 ML BTL 1 DROP RIGHT EYE (21:55)
[2024-01-29] MEDS: MONTELUKAST SODIUM 10 MG TABLET PO (21:55)
[2024-01-29] MEDS: LEVOTHYROXINE SODIUM 25 MCG TABLET PO (21:55)
[2024-01-30] VITALS: BP 128/77; PULSE 79; RESP 20; TEMP 37; O2SAT 90
[2024-01-30 07:51] VITALS: O2SAT 94
[2024-01-30] MEDS: MULTIVITAMINS /C LUTEIN (CENTRUM SILVER) TABLET *BKC 1 TAB PO (08:28)
[2024-01-30] MEDS: LORATADINE 10 MG TABLET PO (08:28)
[2024-01-30] MEDS: ATORVASTATIN 10 MG TABLET PO (08:28)
[2024-01-30] MEDS: CHOLECALCIFEROL 400 UNITS TABLET (VIT D) PO (08:28)
[2024-01-30] MEDS: OMEGA 3 POLYUNSAT FATTY ACIDS 1 GM CAP PO (08:28)
[2024-01-30] MEDS: ACETAMINOPHEN 325 MG TABLET 650 MG PO (08:28)
[2024-01-30] MEDS: lisinopriL 10 MG TABLET PO (08:28)
[2024-01-30] MEDS: ENOXAPARIN 40 MG/0.4 ML SYRINGE SUB-Q (08:28)
[2024-01-30] MEDS: hydroCHLOROthiazide 12.5 MG CAPSULE PO (08:28)
[2024-01-30] MEDS: polyethylene glycoL 3350 17 GM POWD.PACK PO (08:29)
[2024-01-30] MEDS: FLUTICASONE PROPIONATE 0.05% NA SPR 16 GM BTL (*BKC) 2 SPRAY NASAL (08:29)
[2024-01-30 08:51] LABS: Basophils Percent Auto 0.4 % (0.2-1.2); Eosinophils Absolute Auto 0.1 K/mm3 (0-0.3); Eosinophils Percent Auto 1.3 % (0-4.4); Hematocrit 38.1 % (37.0-47.0); Hemoglobin 12.7 g/dL (12.0-15.0); Immature Granulocyte Absolute 0.07 K/mm3 (0.00-0.031); Immature Granulocyte Percent A 0.7 % (0-0.5); Lymphocytes Absolute Auto 1.89 K/mm3 (0.9-3.2); Lymphocytes Percent Auto 19.2 % (18.3-44.2); Mean Corpuscular HGB Conc 33.3 g/dl (32-36); Mean Corpuscular Hemoglobin 31.3 pg (26-34); Mean Corpuscular Volume 93.8 fl (80-100); Mean Platelet Volume 9.7 fl (7.4-10.4); Monocytes Absolute Auto 1.2 K/mm3 (0.1-0.6); Monocytes Percent Auto 12.1 % (2.6-8.5); Neutrophils Absolute Auto 6.5 K/mm3 (1.3-6.7); Neutrophils Percent Auto 66.3 % (45.5-73.1); Platelet Count Result 241 k/mm3 (150-375); Red Blood Count 4.06 M/mm3 (4.2-5.4); White Blood Count 9.9 K/mm3 (4.5-10.0)
--- NOTE | 2024-01-30 09:43 | PM.IMPN ---
Progress Note: A&P Assessment and Plan (1) Pyelonephritis: Code(s): N12 - Tubulo-interstitial nephritis, not specified as acute or chronic Status: Acute Assessment and Plan: 01/29/24: UA showed trace urine blood, 2+ leukocyte, 21-50 urine WBC. Urine culture was obtained and is pending continue Rocephin Patient reporting flank pain Continue pain control 01/30/24: urine culture still pending continue Rocephin continue pain control will touch base today with her urologist (2) Acute UTI: Code(s): N39.0 - Urinary tract infection, site not specified Status: Acute Assessment and Plan: see above (3) Kidney stone: Code(s): N20.0 - Calculus of kidney Status: Acute Assessment and Plan: 01/29/24: CT of the abdomen and pelvis showed a 6 mm nonobstructing right renal stone, no urethral stone or definitive hydronephrosis. Continue pain control 01/30/24: continue pain control (4) Sinusitis: Code(s): J32.9 - Chronic sinusitis, unspecified Status: Acute Assessment and Plan: 01/29/24: Start Claritin and Flonase 01/30/24: no change to current treatment plan (5) Hyperlipidemia: Qualifiers: Hyperlipidemia type: mixed hyperlipidemia Qualified Code(s): E78.2 - Mixed hyperlipidemia Code(s): E78.5 - Hyperlipidemia, unspecified Status: Chronic Assessment and Plan: 01/29/24: continue atorvastatin 01/30/24: no change to current treatment plan (6) Hypertension: Qualifiers: Hypertension type: primary hypertension Qualified Code(s): I10 - Essential (primary) hypertension Code(s): I10 - Essential (primary) hypertension Status: Chronic Assessment and Plan: 01/29/24: blood pressure ranging 126/63 to 158/74 continue hydrochlorothiazide and lisinopril 01/30/24: no change to current treatment plan (7) Hypothyroidism determined by thyroid function test: Code(s): E03.9 - Hypothyroidism, unspecified; R94.6 - Abnormal results of thyroid function studies Status: Chronic Assessment and Plan: 01/29/24: continue Synthroid 01/30/24: no change to current treatment plan Time Spent With Patient Time with patient: 15 - 25 minutes Subjective Date/time seen: 09/09/24 09:43 Interval history: Interval history: This is a 78-year-old female with a significant past medical history of hypertension, hyperlipidemia, hypothyroidism, chronic low back pain, cholecystectomy who presented to the hospital for evaluation of right flank pain. Patient provides the following history of presenting illness. She states that she was recently seen by her Urologist Dr. Manzanares and was diagnosed with a non-obstructing kidney stone. She was told then that she shouldn't have any problems with it and to follow up in their office in 1 year. Yesterday around 6 p.m. she started noticing right flank pain that progressively worsened over the course of a few hours. She came to the ER due to the flank pain for further workup. She denies any fever, chills, nausea, vomiting, diarrhea, abdominal pain, chest pain, or shortness of breath. She does report having a headache, sinus pressure, and right flank pain that has been constant. Workup in the hospital included a CT of the abdomen and pelvis which showed a 6 mm nonobstructing right renal stone, no ureteral stone or definitive hydronephrosis. Initial labs showed a white blood cell count of 10.8, sodium 133, lipase 112. UA was obtained which showed trace urine blood, 2+ leukocyte, 21-50 urine wbc's. Urine culture was obtained and is pending. Patient was given 1 L of normal saline, Zofran, morphine, Dilaudid, and Rocephin while in the ED. Subjective: 01/30/24: patient denies any new complaints today. Labs and cultures reviewed. Review of Systems Review of Systems: All systems reviewed & are unremarkable except as noted in HPI and below Constitutional:
[2024-01-30 09:59] LABS: Alanine Aminotransferase 70 U/L (6-35); Albumin Level 4.4 g/dL (3.5-5.1); Alkaline Phosphatase 110 U/L (38-126); Anion Gap 11 mmol/L (4-12); Aspartate Amino Transferase 66 U/L (14-36); Bilirubin,Total 0.8 mg/dL (0.2-1.3); Blood Urea Nitrogen 13 mg/dL (7-17); Carbon Dioxide 29 mmol/L (22-30); Chloride 97 mmol/L (98-107); Estimated CRCL calculation 69 ml/min; Estimated Glomerular Filt Rate > 60; Glucose 98 mg/dL (65-110); Potassium 3.7 mmol/L (3.4-5.0); Sodium 137 mmol/L (137-145)
[2024-01-30 14:00] VITALS: BP 113/59; PULSE 70; RESP 19; TEMP 36.1; O2SAT 90
--- NOTE | 2024-01-30 17:08 | PM.DS ---
DS: Admitting Diagnosis Discharge Date 01/30/24 Admitting Diagnosis Pyelonephritis Acute UTI Kidney stone Sinusitis Hyperlipidemia Hypertension Hypothyroidism DS: Summary Hospital Course Reason for hospitalization: Pyelonephritis Acute UTI Kidney stone Sinusitis Hyperlipidemia Hypertension Hypothyroidism Hospital Course: This is a 78-year-old female with a significant past medical history of hypertension, hyperlipidemia, hypothyroidism, chronic low back pain, cholecystectomy who presented to the hospital for evaluation of right flank pain. Patient provides the following history of presenting illness. She states that she was recently seen by her Urologist Dr. Manzanares and was diagnosed with a non-obstructing kidney stone. She was told then that she shouldn't have any problems with it and to follow up in their office in 1 year. Yesterday around 6 p.m. she started noticing right flank pain that progressively worsened over the course of a few hours. She came to the ER due to the flank pain for further workup. She denies any fever, chills, nausea, vomiting, diarrhea, abdominal pain, chest pain, or shortness of breath. She does report having a headache, sinus pressure, and right flank pain that has been constant. Workup in the hospital included a CT of the abdomen and pelvis which showed a 6 mm nonobstructing right renal stone, no ureteral stone or definitive hydronephrosis. Initial labs showed a white blood cell count of 10.8, sodium 133, lipase 112. UA was obtained which showed trace urine blood, 2+ leukocyte, 21-50 urine wbc's. Urine culture was obtained and is pending. Patient was given 1 L of normal saline, Zofran, morphine, Dilaudid, and Rocephin while in the ED. Patient denies any new complaints today. Urine culture came back negative for any bacteria in acute UTI and pyelonephritis was ruled out. Rocephin was discontinued. Her pain is under control with [place]. She is stable for discharge at this time. She will need to follow up with her primary care physician in 1 week and call her urologist in 1 week. Final diagnosis: Kidney stone, sinusitis Status at Discharge Cognitive/behavioral status at discharge: Alert and oriented x4 Functional status at discharge: independent ambulation Overall status at discharge: patient is progressing back to baseline Time Spent with Patient Time attestation: Total time spent providing and/or coordinating discharge services: Time spent: Greater than 30 minutes Exam Narrative: General: In no acute distress Cardiac: Normal S1 and S2. Murmur noted, No gallops or friction rubs, peripheral pulses intact. Respiratory: Lungs clear to auscultation, no adventitious lung sounds, currently on room air Gastrointestinal: soft, non-distended, non-tender, normoactive bowel sounds. : voiding without difficulty. CVA tenderness on the right Neuro: Alert and oriented x4 DS: Data Data Completed and Pending Completed studies during hospitalization: Abdomen/pelvis CT Pending studies at discharge: None Labs on day of discharge: Labs from last 24 hours 01/30/24 07:50 WBC 9.9 RBC 4.06 L Hgb 12.7 Hct 38.1 MCV 93.8 MCH 31.3 MCHC 33.3 RDW 13.0 Plt Count 241 MPV 9.7 Immature Gran % (Auto) 0.7 H Neut % (Auto) 66.3 Lymph % (Auto) 19.2 [place] % (Auto) 12.1 H Eos % (Auto) 1.3 Baso % (Auto) 0.4 Lymph # (Auto) 1.89 [place] # (Auto) 1.2 H Eos # (Auto) 0.1 Baso # (Auto) 0.0 Abs Immat Gran (auto) 0.07 H Absolute Neuts (auto) 6.5 Absolute Nucleated RBC 0.000 Nucleated RBC % 0.0 Sodium 137 Potassium 3.7 Chloride 97 L Carbon Dioxide 29 Anion Gap 11 BUN 13 D Creatinine 0.60 L Estim Creat Clear Calc 69 Estimated GFR > 60 Glucose 98 Calcium 9.0 Total Bilirubin 0.8 AST 66 H ALT 70 H Alkaline Phosphatase 110 Total Protein 7.0 Albumin 4.4 Procedures/Treatments: None Discharge Plan Discharge Attending physician on discharge: Osiris Rogers
== END 2024-01-30 17:10 | disposition home or self-care (01) ==
LOC: ANHED 11:02 → ANH3MEDSUR 01-30 16:05
PROVIDERS: Nurse Practitioner Acute Care; Admitting Provider Internal Medicine; Emergency Provider Emergency Medicine; PCP Family Medicine; Visit Provider Internal Medicine
DX: N12 Tubulo-interstitial nephritis, not specified as acute or chronic (principal); N39.0 Urinary tract infection, site not specified; N20.0 Calculus of kidney; J32.9 Chronic sinusitis, unspecified; E78.2 Mixed hyperlipidemia; I10 Essential (primary) hypertension; E03.9 Hypothyroidism, unspecified; M54.50 Low back pain, unspecified; G89.29 Other chronic pain
CPT/HCPCS: 36415; 74176; 80053; 81001; 83690; 85025; 87086; 96361; 96365; 96372; 96375; 96376; 99285; A9270; G0378; J0696; J1170; J1650; J2270; J2405; J7030

== ENCOUNTER 2024-06-26 08:45 | Outpatient (CLI) | payer OTHER, SELFPAY ==
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
--- OUTSIDE RECORDS SUMMARY | 2024-06-26 09:00 | XMS_ITS | CONTINUITY OF CARE DOCUMENT ---
Author Name shankardianerhett Address Unknown Organization [facility] Address [address] [address] [place] [address] Phone [phone] Care Team Providers Care Returning Officer Name Role Phone Tommy CHE, Yumiko Unavailable [phone] Yumiko Sanders MD Unavailable [phone] INSURANCE PROVIDERS Payer name Policy type / Coverage type [place] [employer] party ID [id number] PPO Other [id number]
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
[2024-06-26 09:16] LABS: Basophils Percent Auto 0.4 % (0.2-1.2); Eosinophils Absolute Auto 0.3 K/mm3 (0-0.3); Eosinophils Percent Auto 3.6 % (0-4.4); Hematocrit 37.4 % (37.0-47.0); Hemoglobin 12.8 g/dL (12.0-15.0); Immature Granulocyte Absolute 0.02 K/mm3 (0.00-0.031); Immature Granulocyte Percent A 0.3 % (0-0.5); Lymphocytes Absolute Auto 2.65 K/mm3 (0.9-3.2); Lymphocytes Percent Auto 36.5 % (18.3-44.2); Mean Corpuscular HGB Conc 34.2 g/dl (32-36); Mean Corpuscular Volume 90.6 fl (80-100); Monocytes Absolute Auto 0.7 K/mm3 (0.1-0.6); Monocytes Percent Auto 9.8 % (2.6-8.5); Neutrophils Absolute Auto 3.6 K/mm3 (1.3-6.7); Neutrophils Percent Auto 49.4 % (45.5-73.1); Platelet Count Result 270 k/mm3 (150-375); Red Blood Count 4.13 M/mm3 (4.2-5.4); Red Cell Distribution Width 12.3 % (11.5-14.5); White Blood Count 7.3 K/mm3 (4.5-10.0)
[2024-06-26 10:31] LABS: Alanine Aminotransferase 22 U/L (6-35); Albumin Level 4.1 g/dL (3.5-5.1); Alkaline Phosphatase 86 U/L (38-126); Anion Gap 10 mmol/L (4-12); Aspartate Amino Transferase 29 U/L (14-36); Bilirubin,Total 0.7 mg/dL (0.2-1.3); Blood Urea Nitrogen 18 mg/dL (7-17); Calcium 9.2 mg/dL (8.4-10.2); Carbon Dioxide 31 mmol/L (22-30); Chloride 99 mmol/L (98-107); Estimated Glomerular Filt Rate > 60; Glucose 102 mg/dL (65-110); Lipase 75 U/L (23-300); Potassium 3.8 mmol/L (3.4-5.0); Sodium 140 mmol/L (137-145)
== END 2024-06-26 08:46 | disposition home or self-care (01) ==
LOC: ANHLAB 08:46
PROVIDERS: PCP Family Medicine; Visit Provider Family Medicine
DX: R10.9 Unspecified abdominal pain (principal)
CPT/HCPCS: 36415; 80053; 83690; 85025

== ENCOUNTER 2024-07-26 10:21 | Outpatient (CLI) | payer OTHER, SELFPAY ==
--- NOTE | ~2024-07-26 | US_ITS ---
Limited ABDOMINAL ULTRASOUND (Doppler ultrasound interrogation techniques used as needed for this exa m.) Ordering provider: DARNELL Lamar History: . R10.11 - Right upper quadrant pain . Comparison: None. FINDINGS: PANCREAS: Normal echotexture and size. PORTAL VEIN: Hepatopedal flow demonstrated. LIVER: Normal size and echotexture. No focal hepatic lesions or perihepatic fluid collections are mireille ntified. BILIARY DUCTS: No intra or extrahepatic biliary dilation. Common bile duct measures 5.6 mm in diamete r which is normal for patient's age. GALLBLADDER: Status post cholecystectomy. FREE FLUID: None visualized within the upper abdomen. IMPRESSION: Status post cholecystectomy. Otherwise, normal limited abdominal ultrasound. Reviewed, dictated and finalized at location A. S RIBBON MACHINE OPERATOR
== END 2024-07-26 10:22 | disposition home or self-care (01) ==
LOC: MICIMG 10:22
PROVIDERS: PCP Family Medicine; Visit Provider Nurse Practitioner Family
DX: R10.11 Right upper quadrant pain (principal); Z90.49 Acquired absence of other specified parts of digestive tract
CPT/HCPCS: 76705

== ENCOUNTER 2024-11-03 10:17 | Outpatient (CLI) | payer OTHER, SELFPAY ==
--- NOTE | ~2024-11-03 | MM_ITS ---
EXAMINATION: MM screening pako BI w toi HISTORY: Screening TECHNIQUE: Craniocaudal and mediolateral oblique 3-D tomosynthesis images were obtained and synthetic 2-D images were generated. CAD analysis was submitted and interpreted. COMPARISON: Comparison to multiple prior studies sequentially, with oldest reviewed study dated 03/23. BREAST PARENCHYMAL COMPOSITION: Not dense: There are scattered areas of fibroglandular density. FINDINGS: There is no evidence of suspicious mass, calcification, or architectural distortion to sugg est malignancy in either breast. There has been no suspicious interval change. IMPRESSION: 1. No mammographic evidence of malignancy. 2. Recommend routine screening mammography in one year. BI-RADS Category 1: Negative Reviewed, dictated and finalized at location A.
--- OUTSIDE RECORDS SUMMARY | 2024-11-03 10:20 | XMS_ITS | CONTINUITY OF CARE DOCUMENT ---
Author Name [email or web address] Address Unknown Organization [facility] Address [address] [place] [address] Phone [phone] Care Team Providers Care Alliance Director Name Role Phone Tommy CHE, Yumiko Unavailable Yumiko Sanders MD Unavailable INSURANCE PROVIDERS Payer name Policy type / Coverage type [place] red libertarian ID HE[employer] PPO Other [id number]
--- OUTSIDE RECORDS SUMMARY | 2024-11-03 10:20 | XMS_ITS | Continuity of Care Document ---
Author Organization [facility] Address [address] [place] [address] Phone Care Team Providers Care Substation Operator Helper Name Role Phone Ellis PT,MPT,ATC, Dane Unavailable Unavai lable Procedures Procedure Date Therapeutic Exercise Neuromuscular Re-Ed Therapeutic Exercise Neuromuscular Re-Ed Therapeutic Exercise Neuromuscular Re-Ed Therapeutic Exercise Neuromuscular Re-Ed Therapeutic Exercise Neuromuscular Re-Ed Therapeutic Exercise Neuromuscular Re-Ed Hot or Cold Pack Electrical Stimulation Therapeutic Exercise Neuromuscular Re-Ed Hot or Cold Pack Electrical Stimulation PT Re-evaluation Therapeutic Exercise Neuromuscular Re-Ed Therapeutic Exercise Neuromuscular Re-Ed Therapeutic Exercise Neuromuscular Re-Ed Therapeutic Exercise Neuromuscular Re-Ed Therapeutic Exercise Neuromuscular Re-Ed Cold Pack - Cervical Therapeutic Exercise Neuromuscular Re-Ed Therapeutic Exercise Neuromuscular Re-Ed Manual Therapy Therapeutic Exercise Neuromuscular Re-Ed Manual Therapy Therapeutic Exercise Neuromuscular Re-Ed Therapeutic Exercise Neuromuscular Re-Ed PT Evaluation Low Complexity Therapeutic Exercise Neuromuscular Re-Ed THERAPEUTIC EXERCISES FUNC ACTIVITY THERAPEUTIC EXERCISES MANUAL THERAPY FUNC ACTIVITY THERAPEUTIC EXERCISES MANUAL THERAPY FUNC ACTIVITY PT EVALUATION THERAPEUTIC EXERCISES FUNC ACTIVITY THERAPEUTIC EXERCISES NEUROMUSCULAR RE-ED MANUAL THERAPY FUNC ACTIVITY HOT/COLD PACK ELECTRIC STIMULATION UNA PT RE-EVALUATION THERAPEUTIC EXERCISES NEUROMUSCULAR RE-ED MANUAL THERAPY FUNC ACTIVITY HOT/COLD PACK ELECTRIC STIMULATION UNA THERAPEUTIC EXERCISES NEUROMUSCULAR RE-ED MANUAL THERAPY FUNC ACTIVITY HOT/COLD PACK ELECTRIC STIMULATION UNA Theraband, per yard THERAPEUTIC EXERCISES NEUROMUSCULAR RE-ED MANUAL THERAPY FUNC ACTIVITY HOT/COLD PACK ELECTRIC STIMULATION UNA THERAPEUTIC EXERCISES NEUROMUSCULAR RE-ED MANUAL THERAPY FUNC ACTIVITY HOT/COLD PACK ELECTRIC STIMULATION UNA THERAPEUTIC EXERCISES NEUROMUSCULAR RE-ED MANUAL THERAPY FUNC ACTIVITY HOT/COLD PACK ELECTRIC STIMULATION UNA THERAPEUTIC EXERCISES NEUROMUSCULAR RE-ED MANUAL THERAPY FUNC ACTIVITY HOT/COLD PACK ELECTRIC STIMULATION UNA THERAPEUTIC EXERCISES NEUROMUSCULAR RE-ED MANUAL THERAPY HOT/COLD PACK ELECTRIC STIMULATION UNA THERAPEUTIC EXERCISES MANUAL THERAPY HOT/COLD PACK ELECTRIC STIMULATION UNA PT EVALUATION THERAPEUTIC EXERCISES MANUAL THERAPY HOT/COLD PACK ELECTRIC STIMULATION UNATT Advance Directives Directive Yes / No Effective Date File Name No Information Encounters Encounter Description Practice Location Reason(s) For Visit Diagnoses Date Provider Providers Copied on Encounter [facility] [address], [place], [place], [id number], tel:[phone] [place] No Information 7 7 [place], [place], [place]. Referring Provider: Mookie Yeh [address] [place] [address] [address], [place], [address]. [facility], [place], [place], [address], tel:[phone] [place] No Information 7 [place], [place], [place]. Referring Provider: Mookie Yeh [address] [place] [address] [address], [place], [address]. [facility] [address], [place], [id number], tel:[phone] [place] No Information 0 7 [place], [place]. Referring Provider: Mookie Yeh [address] [place] [address] [address], [place], [address]. [facility], [place], [place], [id number], tel:[phone] [place] No Information 3 7 [place], [place], . Referring Provider: Mookie Yeh [address] [place] [address] [address], [place], [address]. [facility] [address], [place], [place], [address], [place] tel:[phone] [place] No Information Oct-0 9-201 7 Ellis Dane. , [place], [place]. Referring Provider: Mookie Yeh, [address] [place] [address] [address], [place], [address]. [facility], [address], [place], [place], [address], [place] tel:[phone] [place] No Information Oct-0 6-201 7 Ellis Dane. , [place], [place]. Referring Provider: Mookie Yeh, [address] [place] [address] [address], [place], [address]. [facility], [address], [place], [place], [id number], [place] tel:[phone] [place] No Information Oct-0 4-201 7 Ellis Dane. , [place], [place]. Referring Provider: Mookie Yeh, [address] [place] [address] [address], [place], [address]. [facility], [address], [place], [place], [address], [place] tel:[phone] [place] No Information Sep-1 5-201 7 Creola Dane. , [place], [place]. Referring Provider: Mookie Yeh, [address] [place] [address] [address], [place], [address]. [facility], [address], [place], [place], [address], [place] tel:[phone] [place] No Information Sep-0 8-201 7 Creola Dane. , [place], [place]. Referring Provider: Mookie Yeh, [address] [place] [address] [address], [place], [address]. [facility], [address], [place], [place], [address], [place] tel:[phone] [place] No Information Sep-0 6-201 7 Ellis Dane. , [place], [place]. Referring Provider: Mookie Yeh, [address] [place] [address] [address], [place], [address]. [facility], [address], [place], [place], [address], [place] tel:[phone] [place] No Information 0 7 Ellis Dane. , [place], [place]. Referring Provider: Mookie Yeh, [address] [place] [address] [address], [place], [address]. [facility], [address], [place], [place], [address], [place] tel:[phone] [place] No Information 7 Ellis Dane. , [place], [place]. Referring Provider: Mookie Yeh, [address] [place] [address] [address], [place], [address]. [facility], [address], [place], [address], [place] tel:[phone] [place] No Information 7 Ellis Dane. , [place], [place]. Referring Provider: Mookie Yeh, [address] [place] [address] [address], [place], [address]. [facility], [address], [place], [place], [address], [place] tel:[phone] [place] No Information 7 Ellis Dane. , [place], [place]. Referring Provider: Mookie Yeh, [address] [place] [address] [address], [place], [address]. [facility], [address], [place], [address], [place] tel:[phone] [place] No Information 7 Ellis Dane. , [place], [place]. Referring Provider: Mookie Yeh, [address] [place] [address] [address], [place], [address]. [facility], [address], [place], [place], [id number], [place] tel:[phone] [place] No Information 7 Ellis D[place]. , [place], [place]. Referring Provider: Mookie Yeh, [address] [place] [address] [address], [place], [address]. [facility], [address], [place], [place], [address], [place] tel:[phone] [place] No Information 7 [place], [place]. Referring Provider: Mookie Yeh, [address] [place] [address] [address], [place], [address]. [facility], [address], [place], [place], [address], tel:[phone] [place] Strain of musc/fasc/ten d prt biceps, right arm, subsPrimary osteoarthriti s, right shoulderPain in right shoulder 7 [place], [place]. Referring Provider: Mookie Yeh, [address] [place] [address] [address], [place], [address]. [facility] [address] [place] [address] [address], [place], [place], [id number], tel:[phone] [place] No Information 6 [place], [place]. Referring Provider: Mookie Yeh [address] [place] [address] [address], [place], [address]. [facility], [address] [place] [address] [address], [place], [place], [address], tel:[phone] [place] No Information 6 [place], [place]. Referring Provider: Mookie Yeh [address] [place] [address] [address], [place], [address]. [facility] [address], [place], [place], [address], tel:[phone] [place] No Information 6 [place]. Referring Provider: Mookie Yeh [address] [place] [address] [address], [place], [address]. [facility] [address], [place], [place], [address], [place] tel:[phone] [place] Pain in right ankle and joints of right footOth fx upr & low end r fibula, subs for clos fx w routn heal 6 [place], [place]. Referring Provider: Mookie Yeh [address] [place] [address] [address], [place], [address]. [facility], [address], [place], [address], [place] tel:[phone] [place] No Information Oct-1 5-201 4 Gudino Janette. [address] [place] [address], [address], [place], [place], [facility], [place]. tel: [phone] [address], [place], [place], [address], [place] tel:[phone] [place] No Information Oct-1 3-201 4 Gudino Janette. [address] [place] [address], [address], [place], [place], [facility], [place]. tel: [phone] [facility] [address], [place], [place], [address], tel:[phone] [place] No Information Oct-0 8-201 4 Gudino Janette. [address] [place] [address], [address], [place], [place], [facility], [place]. tel: [phone] [place] [address] [facility] [address], [place], [place], [address], [place] tel:[phone] [place] No Information Oct-0 6-201 4 Gudino Janette. [address] [place] [address], [address], [place], [facility], [place]. tel: [phone] [facility] [address], [place], [place], [address], [place] tel:[phone] [place] No Information Oct-0 3-201 4 Gudino Janette. [address] [place] [address], [address], [place], [facility], [place]. tel: [phone] [facility] [address], [place], [place], [address], [place] tel:[phone] [place] No Information Oct-0 1-201 4 Gudino Janette. [address] [place] [address], [address], [place], [facility], [place]. tel: [phone] [address], [place], [place], [address], tel:[phone] [place] No Information Sep-2 9 4 Gudino Janette. [address] [place] [address], [address] [address], . tel: [phone] [address], [place], [place], [address], tel:[phone] [place] No Information Sep-2 4 Gudino Janette. [address] [place] [address], [facility] [address] [place] [address], . tel: [phone] [address], [place], [place], [address], tel:[phone] [place] No Information Sep-2 4 Gudino Janette. [address] [place] [address], [facility] [address] [address], . tel: [phone] [address], [place], [place], [address], tel:[phone] [place] Pain in joint involving shoulder region Sep-1 4 Gudino Janette. [address] [place] [address], [facility] [address] [address], . tel: [phone] Family History Family Member Type Diagnosis Age At Onset No Information Payers Payer name Insurance type Covered constitution party ID Authoriza tion(s) No Information Social History Type Description Quantity Date Captured Comments Sex Female Smoking Status No Information Chief Complaint And Reason For Visit No Information Reason For Referral Reason For Referral No Information History Of Present Illness Encounter Date Complaint History Of Prese nt Illness No Information Functional Status Date Functional Assessmen t No Information Instructions Date Instruction Additional Infor mation No Information Assessments Type Assessment Date No Information Patient Care Teams Name Effective Dates (start - stop) Status Members No Information
--- OUTSIDE RECORDS SUMMARY | 2024-11-03 10:20 | XMS_ITS | Clinical Summary ---
Author Organization [facility] [address] Address [address] [place] [address] Care Team Providers Care Reel Assembler Name Role Phone Sonia Renteria MD Primary Care Provider [phone] Allergies No known active allergies Medications atorvastatin [...] on file Legal Sex Female 7:42 PM DIRECTOR OF VITAL STATISTICS Gender Identity Female 03/27/2021 11:41 AM CDT Sexual Orientation Straight 03/27/2021 11 :41 AM CDT Obstetrics History Last Filed Vital Signs Vital Sign Reading Time Taken Comments Blood Pressure 136/70 05/31/2024 11:16 AM DIRECTOR OF VITAL STATISTICS Pulse 75 05/31/2024 11:16 AM DIRECTOR OF VITAL STATISTICS Temperature 36.8 C (98.2 F) 05/31/2024 11:16 AM DIRECTOR OF VITAL STATISTICS Respiratory Rate 28 05/31/2024 11:16 AM DIRECTOR OF VITAL STATISTICS Oxygen Saturation 95% 05/31/2024 11:16 AM DIRECTOR OF VITAL STATISTICS Inhaled Oxygen Concentration - - Weight 79.4 kg (175 lb) 05/31/2024 11:16 AM DIRECTOR OF VITAL STATISTICS Height 157.5 cm (5' 2) 01/03/2024 11:04 AM CDT Body Mass Index 32.01 01/03/2024 11:04 AM CDT Plan of Treatment Health Maintenance Due Date Last Done Comments Depression Screening 1945 Fall Risk Assessment 1945 Hepatitis C Screening 1945 Osteoporosis Screening-Bone Density Scan 1945 Hepatitis B Screening 09/03/1965 Well Visit 65+ 09/03/2012 Covid-19 Vaccine ( season) 2024 03/13/2021, 08/05/2020, 07/15/2020 DTaP/Tdap/Td Vaccine (2 - Td or Tdap) 03/07/2024, 12/03/2003 Influenza Vaccine (Season Ended) 2025 02/23/2021, 02/15/2020, 02/16/2018 Pneumococcal vaccine 65+ Completed 03/07/2018, 02/20 Zoster Vaccine Completed 12/19/2018, 09/08/2018 Insurance [facility] [id number] Member Subscriber Plan / Payer (Ef fective 2021-Present) Name:Ron Kavita L Member ID:[id number] Relation to Subscriber:Self Name:Kavita Velasquez Maikol Subscriber ID:[id number] Payer ID:[id number] Type:[employer] HMO/PPO Address: [address] [place] [id number] Care Teams Reel Assembler Relationship Specialty Start Date End Date Sonia Renteria MD [address] [place] [id number] PCP - General Family Medicine 01/03/24
--- OUTSIDE RECORDS SUMMARY | 2024-11-03 10:20 | XMS_ITS | Data Portability ---
Author Organization [place] - [facility] [employer], Main Office Address [address] [place] [address] Assessment No assessment recorded. Plan of Treatment Reminders Order Date Submit Date Provider Last Modified By Organization Details Last Modified Time Details Appointments None recorded. Lab urinalysis , dipstick 2023 024 [email or web address] [facility], [address], 16:34:26 Referral None recorded. Procedures None recorded. Surgeries None recorded. Imaging None recorded. Medication Orders None recorded. Patient TargetsNo targets recorded. Patient Instructions Encounter Date Encounter Id Patient Instructions Last Modified By Organization Details Last Modified Time 01/27/2024 [id number] 1. The stone is nonobstructing and asymptomatic I do not think her pain was due to a stone the way she describes the pain 2. She needs to follow up in 1 year with a KUB [email or web address] Not available 01/27/2024 16:38:25 Reason for Referral None Reported. Results Created Date Observation Date Name Description Value Unit Range Abnormal Flag Note LastModifiedBy Organization Detail LastModifiedTime 01/27/2001/27/2024 urina lysis , dipst ick Leukocytes (reference range: negative clarissa/ l) Small Not Available [facility] [address], [address], 01/27/2024 16:12:09 01/27/20 24 01/27/2024 urina lysis , dipst ick Nitrite (reference rage: negative mg/dl) negati ve Not Available [facility] [address], [place], [address], 01/27/2024 16:12:01/27/20 24 01/27/2024 urina lysis , dipst ick Urobilinogen (reference range: 0.2-1 mg/dl) 0.2 Not Available [facility] [address], [place], [address], 01/27/2024 16:12:01/27/20 24 01/27/2024 urina lysis , dipst ick Protein (reference range: negative mg/dl) Negati ve Not Available [facility] [address], [place], [address], 01/27/2024 16:12:01/27/20 24 01/27/2024 urina lysis , dipst ick pH (reference range: 5-7) 7.5 Not Available s_ gmg [facility] [address], [place], [address], 01/27/2024 16:12:01/27/20 24 01/27/2024 urina lysis , dipst ick Blood (reference range: negative John/ l) Negati ve Not Available [facility] [address], [place], [address], 01/27/2024 16:12:01/27/20 24 01/27/2024 urina lysis , dipst ick Specific [place] (reference range: 1.005-1.030) 1.020 Not Available s _[facility] [address], [place], [address], 01/27/2024 16:12:01/27/20 24 01/27/2024 urina lysis , dipst ick Ketone (reference range: negative mg/dl) Negati ve Not Available [facility] [address] [place] [address] [address], [place], [address], 01/27/2024 16:12:09 01/27/20 24 01/27/2024 urina lysis , dipst ick Bilirubin (reference range: negative mg/dl) Negati ve Not Available [facility] [address] [place] [address] [address], [place], [address], 01/27/2024 16:12:09 01/27/20 24 01/27/2024 urina lysis , dipst ick Glucose (reference range: negative mg/dl) Negati ve Not Available [facility] [address] [place] [address] [address], [place], [address], 01/27/2024 16:12:09 01/27/20 24 01/27/2024 urina lysis , dipst ick Appearance Clear Not Available [facility] [address] [place] [address] [address] [facility] [address], [place], [address], 01/27/2024 16:12:09 01/27/20 24 01/27/2024 urina lysis , dipst ick Color Yellow Not Available [facility] [address] [place] [address] [address] [facility] [address], [place], [address], 01/27/2024 16:12:09 01/26/[address], abdom en + pelvi s, w/o contr ast No observ ation record ed. [email or web address] Not Available 01/25 14:01:30 02/01/[address], abdom en + pelvi s, w/o contr ast No observ ation record ed. [email or web address] Not Available 02/01 13:29:45 Result Notes None recorded. Problems Name Problem SNOMED Code Status Onset Date Resolution Date Notes Provider Name and Address Organization Details Recorded Time Kidney stone 26098460 Active 024 Doreen johnson [facility] 01/27/2024 16:12:01 Problem Notes None recorded. Procedures Surgical History Date Name Laterality Status Provider Name and Address Organization Details Recorded Time cataract surgery completed Doreen Carter [facility] 01/27/2024 16:10:04 partial repair of rotator cuff completed Doreen Carter [facility] 01/27/2024 16:10:16 Gallbladder Surgery completed Doreen Carter [facility] 01/27/2024 16:10:31 Imaging Results None recorded. Procedure Notes None recorded. Medical Equipment None Reported. Allergies No known drug allergies Medications Name Sig Start Date Stop Date Status Note LastModified by Organization Details LastModified Time latanoprost 0.005 % eye drops INSTILL 1 DROP INTO RIGHT EYE AT NIGHT active Not Available Not Available No t Available flurbiprofe n 0.03 % eye drops INSTILL 1 DROP INTO SURGICAL EYE THREE TIMES DAILY BEGINNING 2 DAYS PRIOR TO SURGERY AND CONTINUE FOR 2 WEEKS AFTER 01/26 completed Not Available Not Available Not Available prednisolon e acetate 1 % eye drops,suspe nsion INSTILL 1 DROP INTO SURGICAL EYE THREE TIMES DAILY STARTING AFTER SURGERY AND CONTINUE FOR 3 WEEKS 01/26 completed Not Available Not Available Not Available Synthroid 25 mcg tablet Take 1 tablet every day by oral route. active Not Available Not Available No t Available ciprofloxac in 0.3 % eye drops INSTILL 1 DROP INTO SURGICAL EYE THREE TIMES DAILY BEGINNING 2 DAYS PRIOR TO SURGERY AND CONTINUE FOR ONE WEEK AFTER 01/26 completed Not Available Not Available Not Available benzonatate 100 mg capsule TAKE 1 CAPSULE BY MOUTH THREE TIMES DAILY NEEDED FOR COUGH 01/26 completed Not Available Not Available Not Available hydrochloro thiazide 12.5 mg capsule TAKE 1 CAPSULE BY MOUTH ONCE DAILY active Not Available Not Available No t Available lidocaine HCl 2 % mucosal solution APPLY 10 ML TO THE MOUTH OR THROAT EVERY 6 HOURS NEEDED FOR SORE THROAT 01/26 completed Not Available Not Available Not Available omeprazole 20 mg capsule,del ayed release TAKE 1 CAPSULE BY MOUTH ONCE DAILY active Not Available Not Available No t Available montelukast 10 mg tablet TAKE 1 TABLET BY MOUTH ONCE DAILY active Not Available Not Available No t Available celecoxib 100 mg capsule TAKE 1 CAPSULE BY MOUTH TWICE DAILY 01/26 completed Not Available Not Available Not Available fluticasone propionate 50 mcg/actuati on nasal spray,suspe nsion USE 2 SPRAY(S) IN EACH NOSTRIL ONCE DAILY active Not Available Not Available No t Available atorvastati n active Not Available Not Available Not Available Fish Oil active Not Available Not Avai lable Not Available lisinopril active Not Available Not Av ailable Not Available Centrum Silver active Not Available Not Available Not Available Vitamin D3 active Not Available Not Av ailable Not Available latanoprost active Not Available Not A vailable Not Available Vitals Date Recorded Body height Body mass index (BMI) Body weight Body temperature Heart rate Oxygen saturation Oxygen saturation in Arterial blood by Pulse oximetry Provider Name and Address Organization Details Last Updated DateTime 157.48 cm 29.3 kg/m2 33277.7 8 g 98.1 [degF] 87 /min 96 % 96 % Doreen Carter [employer] 16:15:20 Social History Question Answer Notes LastModified by [employer] Details LastModified Time Tobacco Smoking Status Never Smoker Doreen johnson [employer] 01/27/2024 16:09:42 What Was The Date Of Your Most Recent Tobacco Screening? 01/27/2024 Information not available 01/27/2024 Sex: Unknown Functional Status Question Answer Note LastModified by Organization D etails LastModified Time What is your level of alcohol consumption? None [email or web address] Information not available 01/27/2024 Mental Status None recorded. Family History Relationship Description Onset Age of this Age Resolved Age Notes LastModified by Organization Details LastModified Time Father No current problems or disability [email or web address] Not available 10/2023 16:11:42 Mother No current problems or disability [email or web address] Not available 10/2023 16:11:42 Medical History Condition Response CANCER: SPECIFY N KIDNEY STONES Y BLADDER PROBLEMS Y ANESTHESIA COMPLICATIONS N BLOOD CLOTS N ATRIAL FIBRILLATION N ASTHMA N AIDS/HIV N HYPERTENSION N COPD N Gynecological HistoryNo gynecological history recorded. Obstetrics History GPAL:G 0 P 0 0 0 0 Past Encounters Encounter ID Performer Location Encounter Start Date Encounter Closed Date Diagnosis/Indication Diagnosis SNOMED-CT Code Diagnosis ICD10 Code Diagnosis Note [id number] Manjit Manzanares MD [facility] [address] [facility] [address] [place] [address] 01/27/2024 15:59:03 01/27/2024 16:28:36 Kidney stone 43573495 N20.0 Health Concerns Section Related Observation LastModified by Organization Detai ls LastModified Time None Recorded Concern Status LastModified by Organization Details LastModified Time None Recorded Advance Directives Directive None Recorded Payers Insurance Date Sequence Insurance Name Policy Number Policy Rahman Covered Member ID Rahman Member ID Guarantor Name 03/29/2024 1 [employer] - OPEN ACCESS Kavita Velasquez [id number] [id number] Kavita Velasquez Notes Date Note Type Note Provider Name and Address Organization Details Recorded Time 01/27/2024 text/html the patient complained of some intermittent pain or back so a CT scan was ordered and it shows a 4 mm stone in the right lower pole nonobstructing although they did mention something about left upper pole renal cyst measuring 3.1 cm and left hydronephrosis. Then later on they talked about bilateral hydronephrotic changes by I do not see any evidence of any obstruction and no pathologic reason for them discussing hydronephrosis She denies any gross hematuria. Her urinalysis shows no blood. There are no specific aggravating or relieving factors Manjit Manzanares MD [address], [place], [address], [place] [employer] [facility] 01/27/2024 16:38:50 OBGyn Episode No OBEpisode recorded.
--- OUTSIDE RECORDS SUMMARY | 2024-11-03 10:20 | XMS_ITS | Continuity of Care Document ---
Author Organization [facility] Address [address] [place] [address] [address] [place] [address] Phone Care Team Providers Care Baggage Handling Supervisor Name Role Phone Isiah Alanis Unavailable Unavailable Procedures Procedure Date Office/outpatient Visit, Est Office/outpatient Visit, Est Corneal Pachymetry Fundus Photography W/ Report Visual Field Examination(s) Office/outpatient Visit, New Refraction Advance Directives Directive Yes / No Effective Date File Name No Information Encounters Encounter Description Practice Location Reason(s) For Visit Diagnoses Date Provider Providers Copied on Encounter Office/outpat ient Visit, [facility], [address] [place] [address] [address], [place], [place], [id number], tel:[phone] [facility] No Information 8-201 0 Zeke Joyce. [facility] [address], [address], [place], [place], Formerly named [facility], . tel:[phone] Office/outpat ient Visit, [facility], [address] [place] [address] [address], [place], [place], [id number], tel:[phone] [facility] No Information 1-200 9 Zeke Joyce. [facility] [address], [address], [place], [place], Formerly named [facility], . tel:[phone] Referring Provider: Suzy [employer] [address], [place], [address]. tel:[phone] [facility], [address] [facility] [address], [place], [place], [id number], tel:[phone] [facility] No Information Dec-0 1-200 8 Zeke Joyce. [address] [place] [address] , [address], [place], [place], Formerly named [facility], [place]. tel:[phone] Referring Provider: Isiah Monteiro, [address] [place], [place] [address] [place] [address], [place], [place], Formerly named [facility]. tel:[phone] Office/outpat ient Visit, [facility], [address], [place], [place], [id number], tel:[phone] [facility] No Information 2 8200 8 Zeke Joyce. [address] [place] [address] , [address], [place], [place], Formerly named [facility], [place]. tel:[phone] Referring Provider: Raj Monteiro, [address] [place] [address] [address], [place], [place], Formerly named [facility]. tel:[phone] Family History Family Member Type Diagnosis Age At Onset No Information Payers Payer name Insurance type Covered green party ID Authoriza tion(s) No Information Social [...]
--- OUTSIDE RECORDS SUMMARY | 2024-11-03 10:20 | XMS_ITS | Referral Summary ---
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 Gender Identity Female 03/27/2021 11:41 AM CDT Sexual Orientation Straight 03/27/2021 11 :41 AM CDT Last Filed Vital Signs Vital Sign Reading Time Taken Comments Blood Pressure 136/70 05/31/2024 11:16 AM CABLE INSTALLER REPAIRER HELPER Pulse 75 05/31/2024 11:16 AM CABLE INSTALLER REPAIRER HELPER Temperature 36.8 C (98.2 F) 05/31/2024 11:16 AM CABLE INSTALLER REPAIRER HELPER Respiratory Rate 28 05/31/2024 11:16 AM CABLE INSTALLER REPAIRER HELPER Oxygen Saturation 95% 05/31/2024 11:16 AM CABLE INSTALLER REPAIRER HELPER Inhaled Oxygen Concentration - - Weight 79.4 kg (175 lb) 05/31/2024 11:16 AM CABLE INSTALLER REPAIRER HELPER Height 157.5 cm (5' 2) 01/03/2024 11:04 AM CDT Body Mass Index 32.01 01/03/2024 11:04 AM CDT Plan of Treatment Not on file Insurance [employer] [facility] [id number] Member Subscriber Plan / Payer (Ef fective 2021-Present) Name:Kavita Velasquez Maikol Member ID:[id number] Relation to Subscriber:Self Name:Kavita Velasquez Subscriber ID:[id number] Payer ID:[id number] Type:[employer] HMO/PPO Address: [address] [place] [phone] Care Teams College Tutor Relationship Specialty Start Date End Date Sonia Renteria MD [address] [place] [address] PCP - General Family Medicine 01/03/24
== END 2024-11-03 10:18 | disposition home or self-care (01) ==
LOC: ANHIMG 10:18
PROVIDERS: PCP Family Medicine; Visit Provider Family Medicine
DX: Z12.31 Encounter for screening mammogram for malignant neoplasm of breast (principal)
CPT/HCPCS: 77063; 77067